=== PATIENT | male | born 1955 | race Caucasian/White ===

== ENCOUNTER 2019-02-09 08:04 | Day surgery (SDC) | payer MEDICARE, OTHER ==
[~2019-02-09] VITALS: Ht 180.3 cm; Wt 105.3 kg
[~2019-02-09 08:04] MED LIST: ALFU10 PO; ALPHA LIPOIC A600 MG PO; ASCO500 PO; ASPI81CH PO; ATOR40TA PO; CHOL10002 PO; CLOP75 PO; GABA600 PO; GLIP2.5ER PO; LOSA50 PO; METF500 PO; MULTI VITAMIN1 EACH PO; OXYCODONE HCL E10 MG PO; Saw Palmetto160 MG PO; VITAMIN B122500 MC1 PO
--- NOTE | 2019-02-09 08:30 | NUR ---
AMBULATORY INTO [facility] UTILIZING CANE. PT REPORTS 4/10 LOW BACK PAIN. PT IS POOR HISTORIAN. HISTORY AND ALLERGIES REVIEWED. PT STATES "I REALLY DON'T KNOW WHAT ALL I'M TAKING" WHEN RN WAS REVIEWING MEDICATION LIST. PT STATES THAT HE HAS BEEN OFF PLAVIX FOR ONE WEEK. LUNGS CLEAR SATS>90% ON RA. NPO STATUS CONFIRMED. 12 LEAD EKG ORDERED.
--- NOTE | 2019-02-09 10:50 | NUR ---
DR WALTERS CAME TO ASSSESS PT, CANCELLING SURGERY. IV REMOVED AND PT AMBULATED OUT OF DEPARTMENT W/CANE.
--- NOTE | 2019-02-09 10:59 | NUR ---
PHARMACY CALLED TO CREDIT BACK LR AND ANCEF THAT WAS PULLED AND SPIKED FOR PT. WENT TO PUT OUT OF STEP TIME AND CASE HAD ALREADY BEEN CANCELLED FROM BIG BOARD. PT LEFT AT 1054.
== END 2019-02-09 22:53 | disposition home or self-care (01) ==
LOC: ORSCMMR 08:04 → ORD 11:30 → ORSCMMR 22:53
DX: M51.26 Other intervertebral disc displacement, lumbar region (principal); M47.26 Other spondylosis with radiculopathy, lumbar region; M48.062 Spinal stenosis, lumbar region with neurogenic claudication; Z53.9 Procedure and treatment not carried out, unspecified reason; E11.9 Type 2 diabetes mellitus without complications; F17.210 Nicotine dependence, cigarettes, uncomplicated
CPT/HCPCS: 82947; 93005; 93010; J0690; J2704; J3010; J7120

== ENCOUNTER 2023-12-27 05:44 | Emergency (ER) | payer MEDICARE, OTHER ==
[~2023-12-27] VITALS: Ht 177.8 cm; Wt 86.2 kg
[2023-12-27] MEDS ORDERED: Mag Sulfate 1 GM/D5% 100ML 100 ML IV ONE (06:00)
[2023-12-27] MEDS ORDERED: NS 1,000 ML IV SCH ×2 (06:05→09:20)
[2023-12-27 06:15] LABS: Chloride (POC) 108 mmol/L (98-108); Creatinine (POC) 1.9 mg/dL (0.8-1.3); Glucose (ISTAT POC) 181 mg/dL (70-99); Hemoglobin (POC) 12.6 g/dL (13.5-17.5); Potassium (POC) 4.9 mmol/L (3.5-5.5); Sodium (POC) 138 mmol/L (135-148); Total CO2 (POC) 17 mmol/L (21-32)
[2023-12-27 06:18] LABS: BASOPHILS ABSOLUTE AUTO 0.03 K/mm3 (0.00-0.23); BASOPHILS PERCENT AUTO 0 % (0-2); EOSINOPHILS PERCENT AUTO 1 % (0-6); Hematocrit 36.1 % (37.0-53.0); Hemoglobin 11.5 g/dL (13.5-17.5); IMMATURE GRAN ABSOLUTE AUTO 0.04 K/mm3 (0.00-0.10); IMMATURE GRAN PERCENT AUTO 1 % (0-1); LYMPHOCYTES ABSOLUTE AUTO 1.44 K/mm3 (0.84-5.20); LYMPHOCYTES PERCENT AUTO 16 % (21-46); MONOCYTES ABSOLUTE AUTO 0.48 K/mm3 (0.16-1.47); MONOCYTES PERCENT AUTO 6 % (4-13); Mean Corpuscular HGB 31.3 pg (26.0-34.0); Mean Corpuscular HGB Conc 31.9 g/dL (31.5-36.5); Mean Corpuscular Volume 98 fL (80-100); Mean Platelet Volume 12.7 fL (9.1-12.4); NEUTROPHILS PERCENT AUTO 76 % (41-73); Platelet Count 126 K/mm3 (150-400); RDW Standard Deviation 46.5 fL (35.1-46.3); Red Blood Cell Count 3.67 M/mm3 (4.30-5.90); White Blood Cell Count 8.79 K/mm3 (4.00-11.30)
[2023-12-27 06:34] LABS: Albumin, Blood 3.4 g/dL (3.4-5.0); Albumin/Globulin Ratio 0.9 (0.8-1.8); Bun/Creatinine Ratio 16.1 (12.0-20.0); Calcium, Blood 9.6 mg/dL (8.5-10.1); Creatinine, Blood 1.49 mg/dL (0.60-1.20); Globulin, Blood 3.7 g/dL (2.2-4.0); Potassium, Blood 4.6 mmol/L (3.5-5.5); Total Protein, Blood 7.1 g/dL (6.4-8.2)
[2023-12-27] MEDS ORDERED: Ondansetron HCl 2 MG / ML 2ML Vial IV ONE (07:00)
[2023-12-27 07:13] LABS: Bicarbonate Venous 16.8 mmol/L (24.0-30.0); PCO2 Venous 40.9 mmHg (38-42); pH Blood Venous 7.24 (7.34-7.37)
[2023-12-27 07:14] LABS: Base Excess Venous -9.8 mmol/L
[2023-12-27] MEDS ORDERED: Heparin Sodium 5000 Units/ML 1ML MDV IV ONE (09:00)
[2023-12-27 09:46] VITALS: BP 88/64
[2023-12-27 09:48] LABS: International Normalized Ratio 1.33; Prothrombin Time Results 13.9 Sec (9.7-11.5)
[2023-12-27 09:50] LABS: Anti-Xa UFH, PHA Monitoring >1.50 IU/mL
[2023-12-27] MEDS ORDERED: Heparin Sodium,Porcine/0.5 NS 500 ML IV SCH (10:10)
== END 2023-12-27 10:47 | disposition short-term general hospital (02) ==
LOC: ER 05:44
PROVIDERS: Emergency Medicine
DX: I21.4 Non-ST elevation (NSTEMI) myocardial infarction (principal); I47.20 Ventricular tachycardia, unspecified; I48.91 Unspecified atrial fibrillation; I25.10 Atherosclerotic heart disease of native coronary artery without angina pectoris; D64.9 Anemia, unspecified; I95.9 Hypotension, unspecified; I11.0 Hypertensive heart disease with heart failure; I50.9 Heart failure, unspecified; D69.6 Thrombocytopenia, unspecified; N28.9 Disorder of kidney and ureter, unspecified; F17.200 Nicotine dependence, unspecified, uncomplicated; Z79.84 Long term (current) use of oral hypoglycemic drugs; Z79.02 Long term (current) use of antithrombotics/antiplatelets; Z79.899 Other long term (current) drug therapy; Z88.6 Allergy status to analgesic agent; Z88.8 Allergy status to other drugs, medicaments and biological substances
CPT/HCPCS: 71045; 80047; 80053; 82803; 84484; 85014; 85025; 85520; 85610; 85730; 86850; 86900; 86901; 93005; 93010; 96365; 96366; 96367; 96368; 96375; 99291-25; J0282; J1644; J2405; J3475; J7030; J7060